=== PATIENT | male | born 2000 | race African-American/Black ===

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

== ENCOUNTER 2023-10-08 16:45 | Emergency (ER) | payer BC ==
[2023-10-08] MEDS ORDERED: Azithromycin 250 MG TAB ONE (17:32)
[2023-10-08] MEDS ORDERED: cefTRIAXone (ROCEPHIN) 500 MG VIAL ONE (17:33)
[2023-10-08] MEDS ORDERED: Lidocaine 1% PF 5 ML VIAL ONE (17:33)
[2023-10-08 18:48] LABS: Bacteria/HPF 1+ HPF (None Seen); Bilirubin Negative (Negative); Blood, Urine Negative (Negative); CAUTI Indications for Culture Pelvic or flank pain; Clarity Clear (Clear); Glucose, Urine (Dipstick) Normal (Negative); Ketone, Urine Negative (Negative); Leukocyte 25 Leu/uL (Negative); Mucous/LPF Rare LPF (<2+); Nitrite Negative (Negative); Protein, Urine (Dipstick) 10 mg/dL (Neg-Trace); RBC/HPF 0-3 HPF (0-3); Specific Gravity, Urine 1.019 (1.002-1.036); Squamous Epithelial None Seen HPF (0-3); Urobilinogen 3 mg/dL (Less than 2)
[2023-10-08 18:49] LABS: Urine Culture Reflex Yes Yes
[2023-10-09 02:07] LABS: Chlam.trachomatis by PCR,Urine DETECTED (NotDetected); GC N.gonorrhoeae PCR,UrineVOID Not Detected (NotDetected)
== END 2023-10-08 18:56 | disposition home or self-care (01) ==
LOC: ERS 16:45
DX: Z20.2 Contact with and (suspected) exposure to infections with a predominantly sexual mode of transmission (principal); F17.290 Nicotine dependence, other tobacco product, uncomplicated
CPT/HCPCS: 81001; 87086; 87491; 87591; 96372; 99283; J0696

== ENCOUNTER 2023-11-11 18:25 | Emergency (ER) | payer BC ==
[2023-11-12 23:19] LABS: Chlam.trachomatis by PCR,Urine Not Detected (NotDetected); GC N.gonorrhoeae PCR,UrineVOID DETECTED (NotDetected)
== END 2023-11-11 19:50 | disposition home or self-care (01) ==
LOC: ERS 18:25
DX: N34.1 Nonspecific urethritis (principal); F17.290 Nicotine dependence, other tobacco product, uncomplicated; Z20.2 Contact with and (suspected) exposure to infections with a predominantly sexual mode of transmission
CPT/HCPCS: 87491; 87591; 99283

== ENCOUNTER 2024-01-05 10:05 | Emergency (ER) | payer BC ==
[2024-01-05 16:43] LABS: Chlam.trachomatis by PCR,Urine DETECTED (NotDetected); GC N.gonorrhoeae PCR,UrineVOID Not Detected (NotDetected)
== END 2024-01-05 11:08 | disposition home or self-care (01) ==
LOC: ERS 10:05
DX: N34.2 Other urethritis (principal); R56.9 Unspecified convulsions; Q85.01 Neurofibromatosis, type 1; F17.290 Nicotine dependence, other tobacco product, uncomplicated; Z55.6 Problems related to health literacy
CPT/HCPCS: 87491; 87591; 99283

== ENCOUNTER 2024-12-09 11:02 | Emergency (ER) | payer BC | END 2024-12-09 13:06 | disposition home or self-care (01) | LOC: ERS 11:02 | DX: J06.9 Acute upper respiratory infection, unspecified (principal); Z87.891 Personal history of nicotine dependence | CPT/HCPCS: 99284 ==